=== PATIENT | female | born 1950 | race Caucasian/White ===

== ENCOUNTER → 2017-04-02 | Outpatient (CLI) | payer OTHER ==
--- NOTE | ~2017-04-02 | EKG ---
[address] [address] ELECTROCARDIOGRAM REPORT Name: SOUZAKVNG Room #: REG CARMELITA Jean#: [id number] Admission: 04/02/17 Attend Phys: Yaneth Tran MD Discharge: Date of : 50 Report #: [id number] THIS REPORT FOR: //name// [facility] Test Date: 2017-04-02 Test Time: 13:19:24 Pat Name: KVNG SOUZA Department: Room: Gender: F Belt Maker: Severiano CRONEJO : 1950 Requested By: Yaneth Tran Order Number: [id number] MD: Leonid Grant Measurements Intervals [place] Rate: 70 P: 53 DE: 151 QRS: 37 QRSD: 90 T: 51 QT: 395 QTc: 427 Interpretive Statements Sinus rhythm No significant abnormality No previous ECG available for comparison Electronically Signed On 04-04-2017 7:51:01 CDT by Leonid Grant [email or web address] <ELECTRONICALLY SIGNED> By: Leonid Grant MD, [facility] 04/04/17 0751 [id number] 1319 Leonid Grant MD, FACC /EPI
== END ==
LOC: CV 12:44
DX: Z01.818 Encounter for other preprocedural examination (principal); I10 Essential (primary) hypertension

== ENCOUNTER → 2017-05-13 | Outpatient (CLI) | payer OTHER | LOC: RAD 02:10 | DX: N63 Unspecified lump in breast (principal); R92.8 Other abnormal and inconclusive findings on diagnostic imaging of breast ==

== ENCOUNTER → 2019-02-01 | Outpatient (CLI) | payer OTHER | LOC: RAD 03:12 | DX: Z12.31 Encounter for screening mammogram for malignant neoplasm of breast (principal) ==

== ENCOUNTER → 2020-03-29 | Outpatient (CLI) | payer OTHER | LOC: BC 08:29 | PROVIDERS: ATTEND Obstetrics & Gynecology | DX: Z12.31 Encounter for screening mammogram for malignant neoplasm of breast (principal) ==

== ENCOUNTER → 2021-04-04 | Outpatient (CLI) | payer OTHER | LOC: BC 10:28 | PROVIDERS: ATTEND Obstetrics & Gynecology | DX: Z12.31 Encounter for screening mammogram for malignant neoplasm of breast (principal) ==